=== PATIENT | male | born 1940 | race Caucasian/White ===

== ENCOUNTER 2020-10-30 01:50 | Inpatient (IN) | payer MEDICARE ==
[~2020-10-30] VITALS: Ht 165.1 cm; Wt 84.6 kg
--- NOTE | ~2020-10-30 | OP ---
[facility] [address] [place] [address] OPERATIVE REPORT Name: KUNAL MILNER Room: [address] IN M.R.#: [id number] Admission: 10/30/20 Attend Phys: Nisa Jackson MD Discharge: Date of : 40 Report #: [id number] THIS REPORT FOR: cc: FAM - No family physician/PCP FAM - No family physician/PCP ~ Chun Chirinos MD DATE OF SERVICE: 10/31/2020 PREOPERATIVE DIAGNOSIS: Acute cholecystitis. POSTOPERATIVE DIAGNOSIS: Acute cholecystitis. OPERATION: Laparoscopic cholecystectomy. SURGEON: Chun Chirinos MD ANESTHESIA: General. ESTIMATED BLOOD LOSS: Minimal. SPECIMEN: Gallbladder. DESCRIPTION OF PROCEDURE: After informed consent was obtained, the patient was brought to the operating room and placed supine. SCDs were placed and working, preoperative antibiotics were administered, general anesthesia was induced. The abdomen was prepped and draped in the usual sterile fashion. A 10 mm incision was made above the umbilicus. Fascia was incised and a trocar was placed. Pneumoperitoneum was established. Three right upper quadrant 5 mm ports were placed. Gallbladder was grasped at the fundus and retracted cephalad. Infundibulum was grasped and retracted laterally. I dissected out the cystic duct and cystic artery. I fully dissected out the cystic plate. Given this critical view, I took pictures to document this. They were placed in the chart. Cystic duct and artery were clipped and ligated leaving 2 clips on the remaining duct and one on the remaining artery. Gallbladder was then taken off the liver bed with electrocautery. It was placed into an Endopouch and removed. The fascia was then closed with a [id number] 0 Vicryl. Skin was closed with 4-0 Monocryl. Incisions were sealed with Dermabond. COMPLICATIONS: None. DISPOSITION: The patient was taken to recovery in satisfactory condition. By: [id number] Chirinos MD /devonte
[2020-10-30 02:30] VITALS: BP 210/74
[2020-10-30 03:05] LABS: HEMATOCRIT 41.5 % (42.0-52.0); HEMOGLOBIN 14.5 gm/dL (14.0-18.0); MCH 30.4 pg (26.0-34.0); MCV 86.8 fL (80.0-100.0); MPV 7.9 fl. (7.2-11.1); NUCLEATED RBCS 0 /100WBC; PLATELET COUNT* 221 thou/uL (150-400); RBC 4.78 mil/uL (4.50-6.00); RDW-CV 13.7 % (10.5-14.5)
[2020-10-30 03:13] LABS: CALCIUM 9.3 mg/dL (8.5-10.1); CREATININE 1.3 mg/dL (0.6-1.3); POTASSIUM 4.4 mmol/L (3.5-5.1)
[2020-10-30 03:17] LABS: ALBUMIN 4.2 g/dL (3.4-5.0); TOTAL BILIRUBIN 0.5 mg/dL (<0.1-1.0); TOTAL PROTEIN 7.7 g/dL (6.4-8.2)
[2020-10-30 04:35] LABS: URINE BILIRUBIN NEGATIVE (Negative); URINE BLOOD TRACE (Negative); URINE CLARITY CLEAR; URINE COLOR YELLOW; URINE GLUCOSE-RANDOM 3+ (Negative); URINE KETONES 2+ (Negative); URINE LEUKOCYTES-REFLEX NEGATIVE (Negative); URINE NITRITE-REFLEX NEGATIVE (Negative); URINE PROTEIN 1+ (Negative); URINE SPECIFIC GRAVITY 1.015 (1.005-1.030); URINE UROBILINOGEN 0.2 E.U./dl (0.2-1.0)
[2020-10-30 06:19] LABS: ABSOLUTE LYMPHOCYTES 0.8 thou/uL (0.8-5.3); ABSOLUTE MONOCYTES 0.7 thou/uL (0.0-1.2); ABSOLUTE NEUTROPHILS 11.6 thou/uL (1.6-8.1); ANISOCYTOSIS 1+; PLATELET ESTIMATE ADEQUATE; POIKILOCYTOSIS 1+
[2020-10-30 09:15] VITALS: BP 166/70
[2020-10-30 13:15] VITALS: BP 152/57
--- NOTE | 2020-10-30 13:57 | EKG ---
[place] [address] ELECTROCARDIOGRAM REPORT Name: KUNAL MILNER Room: [place] [address] ADM IN [facility]#: [id number] Admission: 10/30/20 Attend Phys: Nisa Jackson MD Discharge: Date of : 40 Date of Service: 10/30/20 0304 Report #: [id number] THIS REPORT FOR: //name// [facility] ED Test Date: 2020-10-30 Test Time: 03:04:14 Pat Name: KUNAL MILNER Department: Room: [facility] Gender: M Linderman Machine Operator: CT : 1940 Requested By: Jayla Loving Order Number: [id number] MD: Raul Cheng Measurements Intervals [place] Rate: 52 P: 24 SD: 169 QRS: -15 QRSD: 166 T: 129 QT: 497 QTc: 463 Interpretive Statements Sinus bradycardia Left bundle branch block No previous ECG available for comparison Electronically Signed On 10-30-2020 13:57:01 AUTOMOTIVE TECHNICIAN by Raul Cheng [email or web address] <ELECTRONICALLY SIGNED> By: Raul Cheng MD, FAC 10/30/20 1357 0304 0304 Raul Cheng MD, [facility] /EPI
[2020-10-30 14:15] VITALS: BP 152/57
[2020-10-30 14:40] VITALS: BP 175/59
--- NOTE | 2020-10-30 15:39 | NUR ---
PATIENT ARRIVED TO UNIT AT 1430. ALERT AND ORIENTED X 4. VITAL SIGNS STABLE ON ROOM AIR. UP INDEPENDENTLY IN ROOM. DENIES PAIN AND NAUSEA AT THIS TIME. IV PATENT WITH FLUIDS INFUSING. ORIENTED PATIENT TO ROOM. CALL LIGHT WITHIN REACH.
--- NOTE | 2020-10-30 18:57 | NUR ---
PATIENT ALERT AND ORIENTED X 4. VITAL SIGNS STABLE ON ROOM AIR. UP INDEPENDENTLY IN ROOM. IV PATENT WITH FLUIDS INFUSING. DENIES PAIN AND NAUSEA AT THIS TIME. SURGERY PLANNED FOR EARLY IN TH AM. NPO AT THIS TIME. HOURLY ROUNDS MAINTAINED THROUGHOUT THE SHIFT. CALL LIGHT WITHIN REACH. NURSING WILL CONTINUE TO MONITOR.
[2020-10-30 20:00] VITALS: BP 177/59
[2020-10-31 04:06] LABS: HEMATOCRIT 39.1 % (42.0-52.0); HEMOGLOBIN 13.8 gm/dL (14.0-18.0); MCH 30.9 pg (26.0-34.0); MCHC 35.2 g/dL (28.0-37.0); MCV 87.6 fL (80.0-100.0); MPV 8.2 fl. (7.2-11.1); RBC 4.47 mil/uL (4.50-6.00); RDW-CV 13.8 % (10.5-14.5); WBC 9.8 thou/uL (4.0-11.0)
[2020-10-31 04:06] LABS: GLYCOHEMOGLOBIN (HGB A1C) 6.3 % (4.8-5.6)
[2020-10-31 04:24] LABS: ALBUMIN 3.4 g/dL (3.4-5.0); CALCIUM 8.6 mg/dL (8.5-10.1); CREATININE 1.2 mg/dL (0.6-1.3); POTASSIUM 3.7 mmol/L (3.5-5.1); TOTAL PROTEIN 6.5 g/dL (6.4-8.2)
[2020-10-31 04:48] VITALS: BP 165/66
[2020-10-31 05:19] VITALS: BP 165/66
[2020-10-31 10:53] VITALS: BP 161/54
[2020-10-31 12:11] VITALS: BP 143/64
--- NOTE | 2020-10-31 13:00 | NUR ---
PT.HAD LAP NATALIE TODAY. CM SPOKE WITH HIM. HE SAID HIS DAUGHTER LIVES WITH HIM. HE IS NORMALLY INDEPENDEMT AT HOME. NO USE OF DME. HAS BEEN GETTING UP AND WALKING TO BR. PLANS TO DISCHARGE HOME TOMORROW.
[2020-10-31 16:05] VITALS: BP 125/68
--- NOTE | 2020-10-31 17:23 | NUR ---
PT A&Ox4. VITALS STABLE. IV PATENT, SL. ON RA. UP AD KETAN. DENIED NAUSEA. MINIMAL PAIN, CONTROLLED WITH ICE PACK. INCISION SITES C/D/I. TOLERATING FOOD. CALL LIGHT WITHIN REACH. WILL CONTINUE TO MONITOR.
[2020-10-31 20:00] VITALS: BP 151/60
[2020-11-01] VITALS: BP 166/64
[2020-11-01 04:15] LABS: CALCIUM 8.6 mg/dL (8.5-10.1); CREATININE 1.3 mg/dL (0.6-1.3); POTASSIUM 3.8 mmol/L (3.5-5.1)
--- NOTE | 2020-11-01 07:31 | NUR ---
PATIENT SLEPT MOST OF THE NIGHT. POWELL WAS PLACED FOR RETENTION AND REMAINS TO DEPENDENT DRAIN. IV REMAINS SALINE LOCKED. IV ANTIBIOTICS WERE GIVEN ORDERED. WILL CONTINUE TO MONITOR.
[2020-11-01 08:13] VITALS: BP 145/53
[2020-11-01] MEDS ORDERED: HYDROCODON-ACE1 EAC7 PO (08:37)
[2020-11-01 10:18] VITALS: BP 145/53
--- NOTE | 2020-11-01 12:53 | NUR ---
PT DISCHARGED HOME. COPY OF DISCHARGE PAPERWORK AND PRESCRIPTION GIVEN TO PT WITH EXPLAINATION. PT VERBALIZED UNDERSTANDING. DAUGHTER HERE TO TRANSPORT. IV ACCESS REMOVED.
[2020-11-01 13:10] VITALS: BP 145/53
--- NOTE | 2020-11-03 10:07 | PATH ---
[address] [address] PATHOLOGY RPT PROCEDURE Name: KUNAL OLEARY Room: [address] IN M.R.#: [id number] Admission: 10/30/20 Date of : 40 Discharge: 11/01/20 Report #: [id number] Path Case #: [id number] [facility] Accession Number: [id number] . 01 Material submitted: . gallbladder - GALLBLADDER AND CONTENTS . 01 Clinician provided ICD-10: K80.00 . 01 Clinical history: . CALCULUS OF GALLBLADDER WITH ACUTE CHOLECYSTITIS W/O OBSTRUCTION . 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 (ANJANA:derik; 11/02/2020) QMS 11/02/2020 1604 Local . 02 Electronically signed: . Heriberto Torres MD, Pathologist NPI- [id number] . 01 Gross description: . The specimen is received in formalin, labeled "Kunal Oleary, gallbladder and contents". Received is an intact gallbladder measuring 7.7 x 3.5 x 2.7 cm in greatest dimensions with the serosal surfaces covered by dusky camacho-reyes, necrotic-appearing adipose tissue. Opening the specimen reveals a velvety, bile-stained mucosa with a gallbladder wall thickness of 0.2 cm. Calculi are present displaying a light brown and nodular appearance, and no masses or lesions are noted grossly. Movement Assembler sections, to include the proximal margin, are submitted in cassette A1. (CAA; 11/01/2020) QAC/QAC 11/01/2020 1111 Local . 02 Pathologist provided ICD-10: K80.12 . 02 CPT . 151357 Specimen Comment: A courtesy copy of this report has been sent to [phone] Specimen Comment: Report sent to Performed at: [address] [id number] MD Ariel Coles MD Phone: [phone] Performed at: 02 [place] [address] PATHOLOGY RPT PROCEDURE Name: KUNAL OLEARY Room: [address] DIS IN M.R.#: [id number] Admission: 10/30/20 Date of : 40 Discharge: 11/01/20 Report #: [id number] Path Case #: [id number] [facility] Noyola [address] [place] [place], ELSIE Humphreys [id number] MD Heriberto Torres MD Phone: [phone]
== END 2020-11-01 13:11 | disposition home or self-care (01) | DRG 419 ==
LOC: M.ERS 01:50 → M.TBA-ER 05:16 → M.2W 05:16 → M.3W 10-31 08:04
PROVIDERS: Personal Emergency Response Attendant; ADMIT Family Medicine; ATTEND Family Medicine
PROC: 0FT44ZZ Resection of Gallbladder, Percutaneous Endoscopic Approach (ICD-10-PCS; principal; 2020-10-31)
DX: K80.62 Calculus of gallbladder and bile duct with acute cholecystitis without obstruction (principal); N40.0 Benign prostatic hyperplasia without lower urinary tract symptoms; K40.90 Unilateral inguinal hernia, without obstruction or gangrene, not specified as recurrent; E66.9 Obesity, unspecified; E11.9 Type 2 diabetes mellitus without complications; Z20.822 Contact with and (suspected) exposure to COVID-19; Z68.31 Body mass index [BMI] 31.0-31.9, adult

== ENCOUNTER 2020-11-10 13:15 | Inpatient (IN) | payer MEDICARE ==
[~2020-11-10] VITALS: Ht 165.1 cm; Wt 86.6 kg
--- NOTE | ~2020-11-10 | CON ---
[address] [address] CONSULTATION Name: KUNAL MILNER Room: [address] IN M.R.#: [id number] Admission: 11/10/20 Attend Phys: Nisa Jackson MD Discharge: Date of : 40 Report #: [id number] THIS REPORT FOR: cc: MARLENE - No family physician/PCP MARLENE - No family physician/PCP ~ Cyndie Marte MD DATE OF SERVICE: 11/11/2020 NEPHROLOGY CONSULTATION ATTENDING PHYSICIAN: Dr. Jackson. REASON FOR NEPHROLOGY CONSULTATION: Acute kidney injury. REASON FOR ADMISSION: Abdominal pain and abnormal kidney labs. HISTORY OF PRESENT ILLNESS: This is an 80-year-old male, recently discharged from this facility on 11/01/2020 when he was admitted for acute cholecystitis, underwent laparoscopic cholecystectomy. His creatinine was 1.3 at that time. The patient was brought in because he developed abdominal pain, has had decreased urine output, decreased appetite for 2-3 days. He was found to have creatinine of 21, BUN of 190, bicarbonate of 12 and he was found to have bilateral hydronephrosis on abdominal CT scan, left greater than right with a distended bladder, enlarged prostate. Haynes catheter was inserted and 1600 mL of urine came out right away, 7 liters of urine out overnight. The patient is feeling better. He is just thirsty this morning. He is n.p.o., probably ____ scan. General Surgery is also evaluating him because of recent surgery and abdominal pain, but abdominal pain is much better after Haynes catheter insertion. He states he takes NSAIDs occasionally. Otherwise, he is not on any KALEIGH inhibitors or ARBs at home. His blood pressures are relatively stable. His creatinine has come down from 21-4.6 this morning. He did get IV fluids overnight. Urology has already seen him, recommending to keep the Haynes catheter in for now. ALLERGIES: HYDROCODONE, ENVIRONMENTAL ALLERGIES. REVIEW OF SYSTEMS: As mentioned in history of present illness, otherwise 10-point review of systems done, negative. FAMILY HISTORY: Noncontributory because of his age. SOCIAL HISTORY: Does not smoke or drink alcohol or use illicit drugs. He lives [place] [address] CONSULTATION Name: KUNAL MILNER Room: [address]#: [id number] Admission: 11/10/20 Attend Phys: Nisa Jackson MD Discharge: Date of : 40 Report #: [id number] PAST MEDICAL AND SURGICAL HISTORY: History of enlarged prostate and recent laparoscopic cholecystectomy in October of this year. HOME MEDICATIONS: Include hydrocodone, acetaminophen. PHYSICAL EXAMINATION: VITAL SIGNS: Blood pressure is 156/72, pulse rate is 76, temperature 37.5, respiratory rate is 17, pulse ox 92% on room air. GENERAL: He is awake, alert, oriented x 3. HEAD AND EYES: Atraumatic and normocephalic. Conjunctivae normal. EARS, NOSE, AND THROAT: Normal ears and nose. Mucous membranes are dry. NECK: There is no JVD. CHEST: Bilaterally clear to auscultation anteriorly. No crackles or wheezing. CARDIOVASCULAR: S1, S2 normal. No murmurs. ABDOMEN: Soft, nondistended, nontender. Bowel sounds are present. EXTREMITIES: Lower extremities, there is no edema. NEUROLOGIC: Functions, grossly intact. PSYCHOLOGIC: Mood and affect seems to be normal. LABORATORY DATA: Hemoglobin 13.1, WBC 10.0, hematocrit 37. Sodium 152, potassium is 4.0, chloride 115, BUN 75 from 192, creatinine 4.6 from 21.5 on admission. Troponin is 0.18 and other labs were reviewed. IMAGING: Abdominal pelvic CT scan was reviewed. ASSESSMENT: 1. Acute kidney injury on top of chronic kidney disease stage IIIA with baseline creatinine of 1.3. He comes in with a creatinine of 21. This is in the setting of obstructive uropathy, enlarged prostate. He has bilateral hydronephrosis on abdominal CT scan. Creatinine is getting better with fluids and after Haynes insertion. Renal ultrasound showed bilateral hydronephrosis and hydroureter, left greater than right, enlarged prostate and very distended bladder. UA has 3-10 rbc's per high power field with 1+ protein and this is likely because of catheterized specimen. 2. Recent cholecystitis and cholecystectomy done on 10/30/2020. 3. Surgery is planning probable HIDA scan. 4. Abdominal distention with abdominal pain actually much better after Haynes catheter insertion. We will defer to primary team and Surgery. 5. Bilateral hydronephrosis and urinary retention. Urology is following. He has a Haynes catheter. Enlarged prostate, Flomax has been initiated. 6. Obesity. 7. Left inguinal hernia, not an active problem. 8. Anion gap metabolic acidosis because of renal insufficiency, which has improved. He has metabolic alkalosis, [place] [address] CONSULTATION Name: KUNAL MILNER Room: [address] IN M.R.#: [id number] Admission: 11/10/20 Attend Phys: Nisa Jackson MD Discharge: Date of : 40 Report #: [id number] 9. Elevated troponin, will defer to primary team, could be because of his kidney injury. PLAN: 1. Creatinine and BUN rapidly improving with IV fluids and a Haynes catheter insertion. Creatinine is down to 4.6 from 21. 2. Change his bicarbonate drip to half normal saline at 150 mL an hour. Order change in the computer. 3. Check morning labs and avoid nephrotoxic agents. Avoid NSAIDs. Avoid contrast. 4. Continue Flomax. 5. Follow up with Urology for his obstructive uropathy. Thank you for this consultation. We will follow with you. He has also been started on finasteride by Urology. Also noted to have a left renal 10 mm mass, we will defer to Urology for that. We will follow. By: [id number] Marte MD /nt
[~2020-11-10 13:15] MED LIST: HYDROCODON-ACE1 EAC7 PO
[2020-11-10 13:27] VITALS: BP 176/78
[2020-11-10 14:05] LABS: HEMATOCRIT 41.2 % (42.0-52.0); HEMOGLOBIN 14.1 gm/dL (14.0-18.0); MCHC 34.3 g/dL (28.0-37.0); MCV 87.3 fL (80.0-100.0); MPV 8.7 fl. (7.2-11.1); NUCLEATED RBCS 0 /100WBC; PLATELET COUNT* 191 thou/uL (150-400); RBC 4.72 mil/uL (4.50-6.00); RDW-CV 13.7 % (10.5-14.5); WBC 14.6 thou/uL (4.0-11.0)
[2020-11-10 14:26] LABS: ALBUMIN 3.3 g/dL (3.4-5.0); CREATININE 21.5 mg/dL (0.6-1.3); DIRECT BILIRUBIN 0.3 mg/dL (<0.1-0.3); MAGNESIUM 3.4 mg/dL (1.8-2.4); POTASSIUM 5.3 mmol/L (3.5-5.1); TOTAL BILIRUBIN 0.8 mg/dL (<0.1-1.0); TOTAL PROTEIN 7.4 g/dL (6.4-8.2)
[2020-11-10 14:33] LABS: ABSOLUTE EOSINOPHILS 0.1 thou/uL (0.0-0.7); ABSOLUTE LYMPHOCYTES 0.6 thou/uL (0.8-5.3); ABSOLUTE MONOCYTES 1.8 thou/uL (0.0-1.2); ABSOLUTE NEUTROPHILS 12.1 thou/uL (1.6-8.1)
[2020-11-10 14:34] LABS: PLATELET ESTIMATE ADEQUATE
--- NOTE | 2020-11-10 15:54 | EKG ---
[place] [address] ELECTROCARDIOGRAM REPORT Name: KUNAL MILNER Room: [facility]#: [id number] Admission: 11/10/20 Attend Phys: Discharge: Date of : 40 Date of Service: 11/10/20 1410 Report #: [id number] THIS REPORT FOR: //name// [facility] ED Test Date: 2020-11-10 Test Time: 14:10:03 Pat Name: KUNAL MILNER Department: Room: Gender: Mechanical Planner: [facility] : 1940 Requested By: Raúl Mejia Order Number: [id number] MD: Wally Urias Measurements Intervals [place] Rate: 81 P: 37 MN: 149 QRS: -2 QRSD: 153 T: 140 QT: 422 QTc: 490 Interpretive Statements Sinus arrhythmia Probable left atrial enlargement Left bundle branch block Compared to ECG 10/30/2020 03:04:14 Sinus bradycardia no longer present Electronically Signed On 11-10-2020 15:54:19 HYDROTREATER OPERATOR by Wally Urias [email or web address] <ELECTRONICALLY SIGNED> By: Wally Urias MD, [facility] 11/10/20 1554 1410 1410 Wally Urias MD, [facility] /EPI
[2020-11-10 16:01] LABS: URINE BILIRUBIN NEGATIVE (Negative); URINE BLOOD 2+ (Negative); URINE CLARITY CLEAR; URINE COLOR YELLOW; URINE GLUCOSE-RANDOM TRACE (Negative); URINE KETONES NEGATIVE (Negative); URINE LEUKOCYTES NEGATIVE (Negative); URINE NITRITE NEGATIVE (Negative); URINE PROTEIN 1+ (Negative); URINE UROBILINOGEN 0.2 E.U./dl (0.2-1.0)
[2020-11-10 16:10] LABS: SQUAMOUS 0-3 Few /LPF (0-3)
[2020-11-10 16:11] LABS: URINE RBC 3-10 Few /HPF (0-2); URINE WBC 0-5 Rare /HPF (0-5)
[2020-11-10 16:13] LABS: CRYSTALS None Seen /LPF (None Seen); HYALINE CASTS 0-3 Few /LPF (None Seen); MUCUS None Seen strn/LPF (None Seen)
[2020-11-10 16:14] LABS: BACTERIA None Seen /HPF (None Seen)
[2020-11-10 20:35] VITALS: BP 161/71
[2020-11-10 21:00] VITALS: BP 135/63
[2020-11-11 00:48] VITALS: BP 175/65
[2020-11-11 05:22] VITALS: BP 151/63
[2020-11-11 07:21] LABS: HEMATOCRIT 37.3 % (42.0-52.0); HEMOGLOBIN 13.1 gm/dL (14.0-18.0); MCH 30.2 pg (26.0-34.0); MCHC 35.2 g/dL (28.0-37.0); MCV 85.8 fL (80.0-100.0); RBC 4.35 mil/uL (4.50-6.00); RDW-CV 13.7 % (10.5-14.5)
[2020-11-11 07:30] LABS: CALCIUM 8.4 mg/dL (8.5-10.1)
[2020-11-11 07:42] LABS: CREATININE 4.6 mg/dL (0.6-1.3)
[2020-11-11 08:08] VITALS: BP 156/72
[2020-11-11 08:15] LABS: CALCIUM 8.6 mg/dL (8.5-10.1); CREATININE 8.1 mg/dL (0.6-1.3); POTASSIUM 4.1 mmol/L (3.5-5.1)
[2020-11-11 20:30] VITALS: BP 159/72
[2020-11-12 04:00] VITALS: BP 151/63
[2020-11-12 08:00] VITALS: BP 138/48
[2020-11-12 08:04] LABS: HEMATOCRIT 35.4 % (42.0-52.0); HEMOGLOBIN 12.3 gm/dL (14.0-18.0); MCHC 34.7 g/dL (28.0-37.0); MCV 86.4 fL (80.0-100.0); MPV 8.3 fl. (7.2-11.1); RBC 4.1 mil/uL (4.50-6.00); RDW-CV 13.6 % (10.5-14.5); WBC 10.3 thou/uL (4.0-11.0)
[2020-11-12 08:11] LABS: CALCIUM 8.2 mg/dL (8.5-10.1); POTASSIUM 3.8 mmol/L (3.5-5.1)
[2020-11-12 08:12] LABS: CREATININE 1.4 mg/dL (0.6-1.3)
[2020-11-12] MEDS ORDERED: FLOMAX0.4 MG PO (10:28)
[2020-11-12] MEDS ORDERED: PROSCAR 5MG TABL5 MG PO (10:28)
[2020-11-12 11:57] VITALS: BP 150/69
[2020-11-12 12:19] VITALS: BP 150/69
== END 2020-11-12 13:07 | disposition home or self-care (01) | DRG 682 ==
LOC: M.ERS 13:15 → M.2W 16:06 → M.TBA-ER 16:06 → M.2W 21:00
PROVIDERS: Emergency Medicine; Internal Medicine; ADMIT Family Medicine; ATTEND Family Medicine
DX: N17.0 Acute kidney failure with tubular necrosis (principal); R65.11 Systemic inflammatory response syndrome (SIRS) of non-infectious origin with acute organ dysfunction; E87.2 Acidosis; N13.8 Other obstructive and reflux uropathy; E87.5 Hyperkalemia; R33.8 Other retention of urine; R07.9 Chest pain, unspecified; N13.30 Unspecified hydronephrosis; N18.32 Chronic kidney disease, stage 3b; E66.9 Obesity, unspecified; E83.41 Hypermagnesemia; N40.1 Benign prostatic hyperplasia with lower urinary tract symptoms; R06.89 Other abnormalities of breathing; K40.90 Unilateral inguinal hernia, without obstruction or gangrene, not specified as recurrent; D72.829 Elevated white blood cell count, unspecified; N28.89 Other specified disorders of kidney and ureter; Z20.822 Contact with and (suspected) exposure to COVID-19; Z88.5 Allergy status to narcotic agent; Z79.899 Other long term (current) drug therapy; Z90.49 Acquired absence of other specified parts of digestive tract; Z68.31 Body mass index [BMI] 31.0-31.9, adult

== ENCOUNTER 2020-11-18 06:12 | Emergency (ER) | payer MEDICARE ==
[~2020-11-18] VITALS: Ht 165.1 cm; Wt 85.7 kg
[~2020-11-18 06:12] MED LIST changes: +FLOMAX0.4 MG PO; +PROSCAR 5MG TABL5 MG PO
[2020-11-18 06:17] VITALS: BP 135/70
== END 2020-11-18 07:03 | disposition home or self-care (01) ==
LOC: M.ERS 06:12
DX: T83.098A Other mechanical complication of other urinary catheter, initial encounter (principal); Z88.5 Allergy status to narcotic agent; Z79.899 Other long term (current) drug therapy; Z90.49 Acquired absence of other specified parts of digestive tract; Y92.89 Other specified places as the place of occurrence of the external cause